=== PATIENT | female | born 1945 | race Caucasian/White ===

== ENCOUNTER → 2017-04-18 07:43 | Outpatient (CLI) | payer MEDICARE, SELFPAY | PROVIDERS: Visit Provider Internal Medicine Adolescent Medicine | DX: G43.109 Migraine with aura, not intractable, without status migrainosus (principal) ==

== ENCOUNTER → 2017-04-25 09:21 | Outpatient (CLI) | payer MEDICARE, SELFPAY ==
--- NOTE | 2017-04-25 09:25 | MR_ITS ---
MR head/brain wo con HISTORY: Headache, visual disturbance, pain and pressure behind the left eye worsening. ITS.REASON: OCCULAR MIGRAINE ORDERING PHYSICIAN: Jorgito Riggins MD PATIENT AGE: 71 years COMPARISON: None TECHNIQUE: Standard multiplanar multiecho sequences are performed without contrast. FINDINGS: No midline shift, mass effect, intracranial hemorrhage, or hydrocephalus is evident. The cerebellopontine angles, cerebellum, and brainstem are unremarkable. There is no evidence of acute infarction. There scattered periventricular and subcortical T2 white matter hyperintensities consistent with ischemic gliotic change from microvascular disease. The carotid arteries are somewhat prominent. No large aneurysm is evident. Smaller aneurysms may not be detected with this technique and may be better evaluated with MRA if clinically warranted. There is opacification of the sphenoid sinus on the right. Hippocampal structures are unremarkable in the temporal horns are some x-ray. No mastoid effusion. The globes are grossly unremarkable. IMPRESSION: 1. No acute intracranial findings. 2. Prominence of the carotid arteries nonspecific. No large aneurysm apparent. Smaller aneurysms may not be seen with this technique and may be better evaluated with MRA clinically warranted. 3. Right sphenoid sinus IMPRESSION:
== END ==
PROVIDERS: Visit Provider Internal Medicine Adolescent Medicine
DX: G43.109 Migraine with aura, not intractable, without status migrainosus (principal)
CPT/HCPCS: 70551

== ENCOUNTER → 2017-10-26 16:00 | Outpatient (CLI) | payer MEDICARE, SELFPAY ==
--- NOTE | 2017-10-26 16:03 | MM_ITS ---
MM Dig screening mamm BI w/CAD CAD Screening COMPARISON: Digital mammograms with CAD 10/22/2015 and 06/19/2013 INDICATION: There is a history of breast cancer patient's mother diagnosed after menopause TECHNIQUE: Standard CC and MLO images were obtained. R2 CAD reviewed. FINDINGS: Moderate fibroglandular densities are seen in the central portions of both breasts. There are mole markers on each breast. There are couple benign-appearing calcifications in each breast. There is no suspicious lesion and there are no suspicious microcalcifications. IMPRESSION: Fibrofatty parenchyma with no suspicious lesion seen BI-RADS Category: 2 Benign Finding(s) RECOMMENDED FOLLOW-UP: 1YR - 1 YEAR FOLLOW-UP (A letter has been sent to the patient regarding results of the study.)
== END ==
PROVIDERS: PCP Internal Medicine Adolescent Medicine; Visit Provider Nurse Practitioner Family
DX: Z12.31 Encounter for screening mammogram for malignant neoplasm of breast (principal)
CPT/HCPCS: 77067

== ENCOUNTER → 2017-10-28 10:08 | Outpatient (CLI) | payer MEDICARE, SELFPAY ==
[2017-10-28 10:37] LABS: Basophils # 0.1 K/mm3 (0-0.2); Basophils % 0.6 % (0.1-2.0); Eosinophils # 0.2 K/mm3 (0.0-0.4); Eosinophils % 2.6 % (0.1-12.0); Hematocrit 42.2 % (37.0-47.0); Hemoglobin 14.2 g/dL (12.2-16.2); Lymphocytes % 32.8 K/mm3 (10-50); Mean Corpuscular HGB Conc 33.6 g/dL (31.8-35.4); Mean Corpuscular Hemoglobin 28.9 pg (27.0-31.2); Mean Corpuscular Volume 85.8 fl (81-99); Mean Platelet Volume 6.9 fl (7.4-10.4); Monocytes # 0.6 K/mm3 (0.1-1.0); Monocytes % 6.9 % (1.7-9.3); Neutrophils # 5.2 K/mm3 (1.8-7.8); Neutrophils % 56.9 % (37.0-80.0); Platelet Count 280 K/mm3 (142-424); Red Blood Count 4.91 M/mm3 (4.20-5.40); White Blood Count 9.1 K/mm3 (4.8-10.8)
[2017-10-28 11:00] LABS: Alanine Aminotransferase 17 U/L (12-78); Albumin Level 3.6 gm/dL (3.4-5.0); Albumin/Globulin Ratio 0.9 (1.1-1.8); Alkaline Phosphatase 113 U/L (46-116); Anion Gap 11.6 mEq/L (5-15); Aspartate Amino Transferase 11 U/L (15-37); Bilirubin,Total 0.4 mg/dL (0.2-1.0); Blood Urea Nitrogen 10 mg/dL (7-18); Calcium 8.9 mg/dL (8.5-10.1); Carbon Dioxide 31 mmol/L (21.0-32.0); Chloride 105 mmol/L (98-107); Chol/HDL Ratio 4.8 (1-3.5); Cholesterol 224 mg/dL (140-200); Creatinine,Serum 0.84 mg/dL (0.55-1.02); Estimated Glomerular Filt Rate 66 ml/min (>60); GFR (African American) 80 ML/MIN (>60); Globulin 3.8 gm/dl (1.3-3.2); Glucose 98 mg/dL (74-106); HDL Cholesterol 47 mg/dL (29-89); LDL Cholesterol 151 mg/dL (0-130); Potassium 3.6 mmoL/L (3.5-5.1); Sodium 144 mmol/L (136-145); Total Protein,Serum 7.4 gm/dL (6.4-8.2); Triglycerides 129 mg/dL (30-200); VLDL Cholesterol 26 mg/dL (0-40)
[2017-10-29 18:30] LABS: Vitamin B12 937 pg/mL (232-1245); Vitamin D 25 Hydroxy 41.6 ng/mL (30.0-100.0)
== END ==
PROVIDERS: PCP Internal Medicine Adolescent Medicine; Visit Provider Internal Medicine Adolescent Medicine
DX: I10 Essential (primary) hypertension (principal); E78.5 Hyperlipidemia, unspecified; E53.8 Deficiency of other specified B group vitamins; E55.9 Vitamin D deficiency, unspecified
CPT/HCPCS: 36415; 80053; 80061; 82607; 82652; 85025

== ENCOUNTER → 2018-10-09 15:38 | Outpatient (CLI) | payer MEDICARE, SELFPAY ==
[2018-10-09 16:25] LABS: Basophils % 0.3 % (0.1-2.0); Eosinophils # 0.1 K/mm3 (0.0-0.4); Eosinophils % 0.9 % (0.1-12.0); Hematocrit 42.6 % (37.0-47.0); Hemoglobin 13.9 g/dL (12.2-16.2); Lymphocytes % 7.1 % (10-50); Mean Corpuscular HGB Conc 32.5 g/dL (31.8-35.4); Mean Corpuscular Hemoglobin 28.5 pg (27.0-31.2); Mean Corpuscular Volume 87.8 fl (81-99); Mean Platelet Volume 7.1 fl (7.4-10.4); Monocytes # 0.7 K/mm3 (0.1-1.0); Monocytes % 5.3 % (1.7-9.3); Neutrophils # 11.9 K/mm3 (1.8-7.8); Neutrophils % 86.3 % (37.0-80.0); Platelet Count 339 K/mm3 (142-424); Red Blood Count 4.86 M/mm3 (4.20-5.40); Red Cell Distribution Width 13.3 % (11.5-17.5); White Blood Count 13.8 K/mm3 (4.8-10.8)
[2018-10-09 16:45] LABS: MANUAL DIFFERENTIAL MANUAL DIFFERENTIAL (MANUAL DIFF)
[2018-10-09 18:04] LABS: Lymphocytes % 7 % (10-50); Monocytes % 8 % (2-9); Neutrophils % 80 % (42-76); Platelet Estimate Normal; RBC Morphology Normal; Total Cells Counted 100
[2018-10-09 19:06] LABS: Alanine Aminotransferase 30 U/L (12-78); Albumin Level 3.6 gm/dL (3.4-5.0); Alkaline Phosphatase 78 U/L (46-116); Anion Gap 14.3 mEq/L (5-15); Aspartate Amino Transferase 21 U/L (15-37); Bilirubin,Total 0.5 mg/dL (0.2-1.0); Blood Urea Nitrogen 23 mg/dL (7-18); Carbon Dioxide 28 mmol/L (21.0-32.0); Chloride 99 mmol/L (98-107); Creatinine,Serum 1.22 mg/dL (0.55-1.02); Estimated Glomerular Filt Rate 43 ml/min (>60); GFR (African American) 52 ML/MIN (>60); Globulin 3.7 gm/dl (1.3-3.2); Glucose 91 mg/dL (74-106); Potassium 3.3 mmoL/L (3.5-5.1); Sodium 138 mmol/L (136-145); Total Protein,Serum 7.3 gm/dL (6.4-8.2)
== END ==
PROVIDERS: Visit Provider Nurse Practitioner Family
DX: N39.0 Urinary tract infection, site not specified (principal); R30.0 Dysuria
CPT/HCPCS: 36415; 80053; 85007; 85025; 87040; 87086

== ENCOUNTER → 2019-01-29 08:47 | Outpatient (CLI) | payer MEDICARE, SELFPAY ==
--- NOTE | 2019-01-29 08:52 | FL_ITS ---
PROCEDURE: FL BARIUM SWALLOW CLINICAL INDICATION: dysphagia COMPARISON: No exams were available for comparison TECHNIQUE: In the upright position the patient was observed to swallow barium in both the AP and lateral view. The cervical esophagus was examined under fluoroscopy with images obtained. The patient was then placed prone in the right anterior oblique position and was observed to swallow barium with Valsalva technique . FLUOROSCOPY TIME: 49 seconds FINDINGS: There was temporary spasm of the cricopharyngeus muscle. No annular constricting lesions or filling defects are evident. There was a small sliding hernia with a mildly constricting Schatzki's ring. IMPRESSION: Small hiatal hernia with a mildly constricting Schatzki's ring Dictated by: Connor Giles MD 01/29/2019 10:05 Electronically signed by Connor Giles MD in [place] 01/29/2019 10:05
== END ==
PROVIDERS: PCP Internal Medicine Adolescent Medicine; Visit Provider Surgery
DX: R13.10 Dysphagia, unspecified (principal)
CPT/HCPCS: 74220

== ENCOUNTER → 2019-05-17 12:49 | Outpatient (CLI) | payer MEDICARE, SELFPAY ==
--- NOTE | 2019-05-17 13:01 | MM_ITS ---
PROCEDURE: MM DIG SCREENING MAMM BI W/CAD Digital Breast Tomosynthesis Included CLINICAL INDICATION: SCREENING COMPARISON: [facility] DIG MAMM-SCREEN JOAN from 06/19/2013 [facility] DIG MAMM-SCREEN JOAN from 10/22/2015 [facility] MM Dig screening mamm BI w/CAD from 10/26/2017 TECHNIQUE: Standard CC and MLO images and 3D Tomosynthesis was obtained. R2 CAD reviewed. FINDINGS: There are 3 new circumscribed nodules projecting over the deep superior right breast as best seen on the MLO view. Largest measures 10.3 millimeters with one superior to it measuring 6.0 millimeters and one further superiorly in the prepectoral region measuring 4.0 millimeters These demonstrate some internal lucency and are felt to be most consistent with nonspecific lymph nodes. A benign appearing circumscribed nodule in the inferior and lateral aspect of the left breast 5.0 millimeters is noted. Density was seen in this region on previous CC views. Benign appearing calcifications are seen bilaterally. There is no spiculated mass or suspicious clustered microcalcification to suggest malignancy. IMPRESSION: BI-RAD Category: 3 Probably Benign Finding Short Term Follow-up FOLLOW-UP: 6M 6Month Follow-up (A letter has been sent to the patient regarding results of the study.) Dictated by: Naveen Boswell 05/21/2019 18:15 Electronically signed by Naveen Boswell in [place] 05/21/2019 18:15
== END ==
PROVIDERS: PCP Internal Medicine Adolescent Medicine; Visit Provider Nurse Practitioner Family
DX: Z12.31 Encounter for screening mammogram for malignant neoplasm of breast (principal)
CPT/HCPCS: 77063; 77067

== ENCOUNTER 2019-06-26 14:48 | Outpatient (RCR) | payer MEDICARE, SELFPAY ==
--- NOTE | 2019-06-26 15:47 | HMH.PTOPEV ---
PT Outpatient Evaluation Rehab PT Outpatient Evaluation Start: 06/26/19 15:35 Freq: Status: Active Protocol: Document 06/26/19 15:35 JUNITO (Rec: 06/26/19 15:46 JUNITO [id number]) Electronically Signed By Bob Fernandes, PT 06/26/19 15:35 Outpatient Therapy Subjective History Subjective History Pt is a 74 year old female presenting to outpatient PT with reports of cervical spine pain starting appoximatley 4 months ago. No radicular symptoms to report. Most recent diagnostics indicate multi-level DDD. Comorbidites include HTN, HLD, hx of polio, L TKA and appendectomy. Chief Complaint Pain,Stiff Symptom Type Ache,Sharp Symptoms Relieved By Heat,OTC Meds,Prescription Meds Symptoms Aggravated By Physical Activity,Lifting Prior Functional Limitations None Current Functional Limitations Reaching,Lifting,Housework, Sleeping Symptom Description Intermittent Level of pain today (0-10) 4 Pain scale - at its best (0-10) 0 Pain scale - at its worst (0-10) 7 Cervical Eval Palpation Cervical Muscles R Cervical Paraspinal,L Cervical Paraspinal,R CT Junction,L CT Junction,R Upper Trapezius,L Upper Trapezius Cervical/Thoracic Palpation Findings Tenderness Posture Head/C-Spine Posture Sitting Position C-Spine Flattened Head/C-Spine Posture Standing Position C-Spine Flattened Flexibility Deficits Upper Trapezius Muscle Length (R) Moderate Tightness,(L) Moderate Tightness Levaetor Scapulae Muscle Length (R) Moderate Tightness,(L) Moderate Tightness Pectoralis Minor Muscle Length (R) Moderate Tightness,(L) Moderate Tightness Passive Joint Mobility Cervical PIVM Dec: R OA L OA R AA L AA R C2/3 L C2/3 R C3/4 L C3/4 R C4/5 L C4/5 R C5/6 L C5/6 R C6/7 L C6/7 R C7/T1
== END 2019-06-26 14:55 | disposition home or self-care (01) ==
LOC: PT 14:48
PROVIDERS: PCP Internal Medicine Adolescent Medicine; Visit Provider Nurse Practitioner Family
DX: M47.812 Spondylosis without myelopathy or radiculopathy, cervical region (principal)
CPT/HCPCS: 97010; 97014; 97163; G0283

== ENCOUNTER → 2019-11-14 14:02 | Outpatient (CLI) | payer MEDICARE, SELFPAY ==
--- NOTE | 2019-11-14 14:06 | MM_ITS ---
PROCEDURE: MM DIG MAMM BI DX W/CAD Digital Breast Tomosynthesis Included CLINICAL INDICATION: ABN MAMM OF BOTH BREASTS COMPARISON: MG [facility] DIG MAMM-SCREEN JOAN from 10/22/2015 MG [facility] MM Dig screening mamm BI w/CAD from 10/26/2017 MG MM DIG SCREENING MAMM BI W/CAD from 05/17/2019 US US BREAST RT COMPLETE from 11/14/2019 TECHNIQUE: Standard images with spot compression views and right breast ultrasound. FINDINGS: Average fibroglandular tissue. On the right there is a 5 mm nodular opacity in the upper outer aspect of the right breast which has developed since the interval. This may represent 2 separate small nodules or a bilobular nodule as seen on the tomogram images. The left breast has an unremarkable appearance.. There multiple small skin lesions noted on the left. Right breast ultrasound: In the 10 o'clock region of the right breast there is a bilobular hypoechoic area measuring 5 mm which may correspond to the mammographic abnormality. This may be due to small lymph node. Continued six-month follow-up is suggested to confirm stability. IMPRESSION: Probably benign findings. New nodular density upper outer right breast which may correspond to a lymph node. Recommend continued six-month mammographic and sonographic follow-up. BI-RAD Category: 3 Probably Benign Finding Short Term Follow-up FOLLOW-UP: 6M 6Month Follow-up (A letter has been sent to the patient regarding results of the study.) Dictated by: Connor Giles MD 11/21/2019 18:01 Connor Giles MD in [place] 11/21/2019 18:01
== END ==
PROVIDERS: PCP Nurse Practitioner Family; Visit Provider Nurse Practitioner Family
DX: R92.8 Other abnormal and inconclusive findings on diagnostic imaging of breast (principal)
CPT/HCPCS: 76641; 77062; 77066; G0279

== ENCOUNTER → 2019-12-03 12:20 | Outpatient (CLI) | payer MEDICARE, SELFPAY ==
[2019-12-03 14:10] LABS: Blood Urea Nitrogen 16 mg/dl (7-17); Estimated Glomerular Filt Rate 70 ml/min (>60); GFR (African American) 85 ML/MIN (>60)
== END ==
PROVIDERS: Visit Provider Nurse Practitioner Family
DX: R59.0 Localized enlarged lymph nodes (principal)
CPT/HCPCS: 36415; 82565; 84520

== ENCOUNTER → 2020-02-26 10:30 | Outpatient (CLI) | payer MEDICARE, SELFPAY ==
[2020-02-26 10:52] LABS: Basophils # 0.1 K/mm3 (0-0.2); Basophils % 1.2 % (0.1-2.0); Eosinophils # 0.3 K/mm3 (0.0-0.4); Eosinophils % 3.9 % (0.1-12.0); Hematocrit 46.1 % (37.0-47.0); Hemoglobin 15.2 g/dL (12.2-16.2); Lymphocytes # 2.6 K/mm3 (0.7-4.5); Lymphocytes % 34.3 % (10-50); Mean Corpuscular HGB Conc 32.9 g/dL (31.8-35.4); Mean Corpuscular Hemoglobin 28.4 pg (27.0-31.2); Mean Corpuscular Volume 86.4 fl (81-99); Mean Platelet Volume 7.3 fl (7.4-10.4); Monocytes # 0.5 K/mm3 (0.1-1.0); Monocytes % 6.9 % (1.7-9.3); Neutrophils # 4.1 K/mm3 (1.8-7.8); Neutrophils % 53.7 % (37.0-80.0); Platelet Count 322 K/mm3 (142-424); Red Blood Count 5.34 M/mm3 (4.20-5.40); Red Cell Distribution Width 13.9 % (11.5-17.5); White Blood Count 7.7 K/mm3 (4.8-10.8)
[2020-02-26 11:33] LABS: Alanine Aminotransferase 16 U/L (12-78); Albumin Level 4.5 g/dl (3.5-5.0); Albumin/Globulin Ratio 1.2 (1.1-1.8); Alkaline Phosphatase 104 U/L (38-126); Anion Gap 13.6 mEq/L (5-15); Aspartate Amino Transferase 28 U/L (14-36); Bilirubin,Total 0.7 mg/dl (0.2-1.3); Blood Urea Nitrogen 15 mg/dl (7-17); Calcium 10.3 mg/dl (8.4-10.2); Carbon Dioxide 32 mmol/L (22.0-30.0); Chloride 99 mmol/L (98-107); Chol/HDL Ratio 5.5 (1-3.5); Cholesterol 235 mg/dl (140-200); Estimated Glomerular Filt Rate 70 ml/min (>60); GFR (African American) 85 ML/MIN (>60); Globulin 3.7 g/dL (1.3-3.2); Glucose 109 mg/dl (74-100); HDL Cholesterol 43 mg/dl (40-60); Potassium 3.6 mmoL/L (3.5-5.1); Sodium 141 mmol/L (136-145); Total Protein,Serum 8.2 g/dl (6.3-8.2); Triglycerides 155 mg/dl (30-150); VLDL Cholesterol 31 mg/dL (0-40)
[2020-02-26 11:44] LABS: Direct LDL Cholesterol 150.49 mg/dL (100-129)
[2020-02-26 11:50] LABS: 25-OH Vitamin D, Total 48.3 ng/mL (30-100)
[2020-02-26 12:23] LABS: Vitamin B12 731 pg/mL (239-931)
--- NOTE | 2020-02-26 15:53 | MR_ITS ---
PROCEDURE: MR HEAD/BRAIN WO/W CON CLINICAL INDICATION: HEADACHE, VERTIGO, DIPLOPLOA, LEFT EYE UNABLE TO FOLLOW COMMANDS COMPARISON: No exams were available for comparison TECHNIQUE: Routine multiplanar multi echo sequences are performed without and with gadolinium enhancement. FINDINGS: No midline shift, mass effect, intracranial hemorrhage, or hydrocephalus is evident. The cerebellopontine angles, cerebellum, brainstem and mid brain have an unremarkable appearance. The no enhancing lesions are evident. There are nonspecific periventricular T2 white matter hyperintensities with a few foci noted within the estefania which may be related to ischemic gliotic change from microvascular disease. No evidence of acute infarction. No enhancing lesions are evident. The intracranial carotid arteries and middle cerebral branches are somewhat prominent. No large aneurysms are evident. MRA may provide further evaluation if clinically desired. There is mucosal thickening of the sphenoid sinus on the right. The pituitary, optic chiasm, corpus callosum, and craniocervical junction have an unremarkable appearance. There are degenerative changes in the cervical spine at C4-C5 with bulging disc and narrowing of the canal. IMPRESSION: 1. No acute intracranial findings. 2. Prominent intracranial carotids and middle cerebral arteries. No obvious aneurysm. MRA may provide further evaluation in this patient with visual disturbance. 3. Sphenoid sinus disease on the right Dictated by: Connor Giles MD 02/28/2020 13:40 Connor Giles MD in [place] 02/28/2020 13:40
--- NOTE | 2020-02-26 15:53 | MR_ITS ---
PROCEDURE: MR ORBITS FACE NECK WO/W CON CLINICAL INDICATION: HEADACHE, VERTIGO, DIPLOPLOA, LEFT EYE UNABLE TO FOLLOW COMMANDS 16ML [employer] LOT:[id number] EXP:FEB 2022 COMPARISON: No exams were available for comparison TECHNIQUE: Routine multiplanar multi echo sequences are performed without and with gadolinium enhancement. FINDINGS: The orbits have an unremarkable appearance. No mass or abnormal enhancement evident. There are symmetric extraocular muscles. The ocular nerves are symmetric. No intra or extra ocular mass evident. Mucosal thickening involves the sphenoid sinus on the right. IMPRESSION: Negative MRI of the orbits Dictated by: Connor Giles MD 02/28/2020 13:49 Connor Giles MD in [place] 02/28/2020 13:49
== END ==
PROVIDERS: PCP Nurse Practitioner Family; Visit Provider Internal Medicine Adolescent Medicine
DX: H53.2 Diplopia (principal); H57.12 Ocular pain, left eye; E78.5 Hyperlipidemia, unspecified; E55.9 Vitamin D deficiency, unspecified; E53.8 Deficiency of other specified B group vitamins
CPT/HCPCS: 36415; 70543; 70553; 80053; 80061; 82306; 82607; 85025; A9576

== ENCOUNTER → 2020-05-14 12:52 | Outpatient (CLI) | payer MEDICARE, SELFPAY ==
--- NOTE | 2020-05-14 12:56 | MM_ITS ---
PROCEDURE: MM DIG MAMM DX UNILAT RT CAD Digital Breast Tomosynthesis Included CLINICAL INDICATION: ABN MAMM COMPARISON: MG [facility] MM Dig screening mamm BI w/CAD from 10/26/2017 MG MM DIG SCREENING MAMM BI W/CAD from 05/17/2019 MG MM DIG MAMM BI DX W/CAD from 11/14/2019 US US BREAST RT COMPLETE from 11/14/2019 US US BREAST RT COMPLETE from 05/14/2020 TECHNIQUE: Standard CC and MLO images and 3D Tomosynthesis was obtained. R2 CAD reviewed. Right breast ultrasound also performed FINDINGS: Average fibroglandular tissue. No change in the bilobed nodule in the upper outer right breast measuring 6 mm. No malignant appearing mass or malignant-appearing microcalcification. Right breast ultrasound: 5 x 4 mm hypoechoic nodule at the 10 o'clock region which may correspond to the mammographic abnormality and may be due to small lymph nodes. No suspicious solid lesions. IMPRESSION: No interval change with no evidence of malignancy BI-RAD Category: 2 Benign Finding(s). Recommend resume screening October 2020 FOLLOW-UP: 6M 6Month Follow-up (A letter has been sent to the patient regarding results of the study.) Dictated by: Connor Giles MD 05/16/2020 13:27 Connor Giles MD in [place] 05/16/2020 13:27
== END ==
PROVIDERS: PCP Internal Medicine Adolescent Medicine; Visit Provider Nurse Practitioner Family
DX: R92.8 Other abnormal and inconclusive findings on diagnostic imaging of breast (principal)
CPT/HCPCS: 76641; 77061; 77065; G0279

== ENCOUNTER → 2021-01-01 14:28 | Outpatient (CLI) | payer MEDICARE, SELFPAY ==
--- NOTE | 2021-01-01 14:31 | MM_ITS ---
PROCEDURE INFORMATION: Exam: MG Bilateral Screening 3D Mammography Exam date and time: 01/01/2021 2:31 PM Age: 75 years old Clinical indication: Screening exam; . Family history of breast carcinoma. TECHNIQUE: Imaging protocol: Bilateral screening tomosynthesis and 2D mammography including computer-aided detection (CAD) when performed. COMPARISON: 1. MG MM DIG MAMM DX UNILAT RT CAD 05/14/2020 1:07 PM 2. MG MM DIG MAMM BI DX W/CAD 11/14/2019 2:17 PM 3. MG MM DIG SCREENING MAMM BI W/CAD 05/17/2019 1:04 PM FINDINGS: MAMMOGRAPHY: Breast composition: There are scattered areas of fibroglandular density. Mass: No suspicious masses. Architectural distortion: No suspicious distortion. Calcifications: No suspicious calcifications. Asymmetric density: None. Skin thickening: None. Axillary adenopathy: None. IMPRESSION: No mammographic evidence of malignancy. Annual screening is recommended unless otherwise clinically indicated. ASSESSMENT: BI-RADS Category 1: Negative
== END ==
PROVIDERS: PCP Nurse Practitioner Family; Visit Provider Nurse Practitioner Family
DX: R92.8 Other abnormal and inconclusive findings on diagnostic imaging of breast (principal); Z12.31 Encounter for screening mammogram for malignant neoplasm of breast
CPT/HCPCS: 77063; 77067

== ENCOUNTER → 2021-01-05 14:35 | Outpatient (CLI) | payer MEDICARE, SELFPAY | PROVIDERS: PCP Internal Medicine Adolescent Medicine; Visit Provider Nurse Practitioner | DX: Z20.822 Contact with and (suspected) exposure to COVID-19 (principal) | CPT/HCPCS: C9803; U0003; U0005 ==

== ENCOUNTER → 2021-01-12 09:11 | Outpatient (CLI) | payer MEDICARE, SELFPAY ==
[2021-01-12 10:40] LABS: Chloride 102 mmol/L (98-107); Potassium 3.8 mmoL/L (3.5-5.1); Sodium 142 mmol/L (136-145)
[2021-01-12 10:42] LABS: Basophils # 0.1 K/mm3 (0-0.2); Basophils % 1.1 % (0.1-2.0); Eosinophils # 0.2 K/mm3 (0.0-0.4); Eosinophils % 2.6 % (0.1-12.0); Hematocrit 40.4 % (37.0-47.0); Hemoglobin 13.4 g/dL (12.2-16.2); Lymphocytes # 2.4 K/mm3 (0.7-4.5); Lymphocytes % 34.1 % (10-50); Mean Corpuscular HGB Conc 33.2 g/dL (31.8-35.4); Mean Corpuscular Hemoglobin 29.1 pg (27.0-31.2); Mean Corpuscular Volume 87.7 fl (81-99); Mean Platelet Volume 8.4 fl (7.4-10.4); Monocytes # 0.6 K/mm3 (0.1-1.0); Neutrophils # 3.7 K/mm3 (1.8-7.8); Neutrophils % 54.2 % (37.0-80.0); Platelet Count 330 K/mm3 (142-424); Red Blood Count 4.61 M/mm3 (4.20-5.40); Red Cell Distribution Width 13.5 % (11.5-17.5); White Blood Count 6.9 K/mm3 (4.8-10.8)
[2021-01-12 10:43] LABS: Alanine Aminotransferase 7 U/L (12-78); Albumin Level 4.2 g/dl (3.5-5.0); Albumin/Globulin Ratio 1.6 (1.1-1.8); Alkaline Phosphatase 92 U/L (38-126); Anion Gap 9.8 mEq/L (5-15); Aspartate Amino Transferase 25 U/L (14-36); Bilirubin,Total 0.4 mg/dl (0.2-1.3); Blood Urea Nitrogen 11 mg/dl (7-17); Carbon Dioxide 34 mmol/L (22.0-30.0); Estimated Glomerular Filt Rate 81 ml/min (>60); GFR (African American) 98 ML/MIN (>60); Globulin 2.7 g/dL (1.3-3.2); Total Protein,Serum 6.9 g/dl (6.3-8.2)
[2021-01-12 10:44] LABS: Calcium 9.6 mg/dl (8.4-10.2); Glucose 95 mg/dl (74-100)
== END ==
PROVIDERS: Visit Provider Nurse Practitioner Family
DX: R19.7 Diarrhea, unspecified (principal)
CPT/HCPCS: 36415; 80053; 85025

== ENCOUNTER → 2021-01-13 10:24 | Outpatient (CLI) | payer MEDICARE, SELFPAY ==
[2021-01-13 10:27] LABS: Adenovirus F 40/41, stool Not Detected (NotDetected); Astrovirus Not Detected (NotDetected); Campylobacter Not Detected (NotDetected); Clostridium Difficile A/B, PCR Not Detected (NotDetected); Cryptosporidium Not Detected (NotDetected); Cyclospora Cayetanesis Not Detected (NotDetected); Entamoeba histolytica Not Detected (NotDetected); Enteroaggregative E coli Not Detected (NotDetected); Enteropathogenic E coli Not Detected (NotDetected); Enterotoxigenic E coli Not Detected (NotDetected); Giardia lamblia Not Detected (NotDetected); Norovirus Not Detected (NotDetected); Plesimonas Shigalloides, PCR Not Detected (NotDetected); Rotavirus A Not Detected (NotDetected); Salmonella, PCR Not Detected (NotDetected); Sapovirus Not Detected (NotDetected); Shiga-like toxin E coli Not Detected (NotDetected); Shigella Enterovasive E coli Not Detected (NotDetected); Vibrio Cholerae Not Detected (NotDetected); Vibrio, PCR Not Detected (NotDetected); Yersinia Entercolitica, PCR Not Detected (NotDetected)
== END ==
PROVIDERS: Visit Provider Nurse Practitioner Family
DX: R19.7 Diarrhea, unspecified (principal)
CPT/HCPCS: 87506

== ENCOUNTER → 2021-06-22 11:59 | Outpatient (CLI) | payer MEDICARE, SELFPAY ==
--- NOTE | 2021-06-22 12:08 | XR_ITS ---
FINAL REPORT CLINICAL HISTORY: RIGHT FOOT PAIN FINDINGS: 3 views of the right foot were obtained. There is no acute fracture or dislocation. There are mild and moderate degenerative changes. The soft tissues are unremarkable. IMPRESSION: Mild and moderate degenerative changes. Reviewed, Interpreted and Dictated by Abebe Sheehan III, MD Transcribed by Lukas Thakur Authenticated by Abebe Sheehan III, MD on 06/22/2021 02:41:39 PM [facility]
--- NOTE | 2021-06-22 12:09 | XR_ITS ---
FINAL REPORT CLINICAL HISTORY: RIGHT ANTERIOR KNEE PAIN FINDINGS: Three views of the right knee reveal no evidence of fracture or dislocation. The bony alignment is normal. There is mild degenerative change. There is no evidence of joint effusion. No localized soft tissue abnormality is identified. IMPRESSION: Mild degenerative change. Reviewed, Interpreted and Dictated by Abebe Sheehan III, MD Transcribed by Lukas Thakur Authenticated by Abebe Sheehan III, MD on 06/22/2021 02:01:10 PM [facility]
--- NOTE | 2021-06-22 12:10 | XR_ITS ---
FINAL REPORT CLINICAL HISTORY: RIGHT FOOT/ANKLE PAIN FINDINGS: RIGHT ANKLE: Three views of the right ankle were obtained. There is no acute fracture or dislocation. There is moderate to severe degenerative change. There are large chronic calcifications in the region of the Achilles tendon. IMPRESSION: Moderate to severe degenerative change. Reviewed, Interpreted and Dictated by Abebe Sheehan III, MD Transcribed by Lukas Thakur Authenticated by Abebe Sheehan III, MD on 06/22/2021 02:01:[address] [facility]
== END ==
PROVIDERS: PCP Nurse Practitioner Family; Visit Provider Nurse Practitioner Family
DX: M25.561 Pain in right knee (principal); M25.571 Pain in right ankle and joints of right foot; M79.671 Pain in right foot; G89.29 Other chronic pain; Z86.12 Personal history of poliomyelitis
CPT/HCPCS: 73562; 73610; 73630

== ENCOUNTER → 2021-08-11 09:29 | Outpatient (CLI) | payer MEDICARE, SELFPAY ==
--- NOTE | 2021-08-11 09:30 | US_ITS ---
FINAL REPORT CLINICAL HISTORY: decreased pulses, cold extremities, polio in right leg. HTN, hyperlipidemia, bilateral rest pain, bilateral claudication. FINDINGS: ANKLE-BRACHIAL PRESSURE INDICES Pressure indices are as follows: RIGHT LOWER EXTREMITY: Ankle-brachial pressure index: 0.85 LEFT LOWER EXTREMITY: Ankle-brachial pressure index: 0.97 CONCLUSION: Findings consistent with mild vascular disease on the right and borderline on the left. Reviewed, Interpreted and Dictated by Abebe Sheehan III, MD Transcribed by Mouna Donaldson Authenticated and [facility]
== END ==
PROVIDERS: PCP Nurse Practitioner Family; Visit Provider Podiatrist
DX: R09.89 Other specified symptoms and signs involving the circulatory and respiratory systems (principal)
CPT/HCPCS: 93923

== ENCOUNTER → 2021-12-18 13:08 | Outpatient (CLI) | payer MEDICARE, SELFPAY ==
--- NOTE | 2021-12-18 13:12 | MM_ITS ---
PROCEDURE INFORMATION: Exam: MG Bilateral Screening 3D Mammography Exam date and time: 12/18/2021 1:17 PM Age: 76 years old Clinical indication: Screening examination TECHNIQUE: Imaging protocol: Bilateral Screening tomosynthesis and 2D mammography including computer-aided detection (CAD) when performed. COMPARISON: 1. MG MM DIG SCREENING MAMM BI W/CAD 01/01/2021 2:33 PM 2. MG MM DIG MAMM DX UNILAT RT CAD 05/14/2020 1:07 PM FINDINGS: MAMMOGRAPHY: Breast composition: There are scattered areas of fibroglandular density. Mass: None. Architectural distortion: None. Calcifications: No suspicious calcifications. Asymmetric density: None. Skin thickening: None. Axillary adenopathy: None. IMPRESSION: No mammographic evidence of malignancy. Annual screening is recommended unless otherwise clinically indicated. ASSESSMENT: BI-RADS Category 1: Negative
== END ==
PROVIDERS: PCP Nurse Practitioner Family; Visit Provider Nurse Practitioner Family
DX: Z12.31 Encounter for screening mammogram for malignant neoplasm of breast (principal)
CPT/HCPCS: 77063; 77067

== ENCOUNTER → 2023-01-26 15:47 | Outpatient (CLI) | payer MEDICARE, SELFPAY ==
--- NOTE | 2023-01-26 15:50 | MM_ITS ---
PROCEDURE INFORMATION: Exam: MG Bilateral Screening 3D Mammography Exam date and time: 01/26/2023 3:46 PM Age: 77 years old Clinical indication: Screening examination TECHNIQUE: Imaging protocol: Bilateral Screening tomosynthesis and 2D mammography including computer-aided detection (CAD) when performed. COMPARISON: 1. MG MM DIG SCREENING MAMM BI W/CAD 12/18/2021 1:17 PM 2. MG MM DIG SCREENING MAMM BI W/CAD 01/01/2021 2:33 PM FINDINGS: MAMMOGRAPHY: Breast composition: There are scattered areas of fibroglandular density. Mass: Questionable 0.6 cm mass in the anterior right 12 o'clock axis. Questionable 0.5 cm mass in the middle third of the right upper outer quadrant Architectural distortion: None. Calcifications: No suspicious calcifications. Asymmetric density: None. Skin thickening: None. Axillary adenopathy: None. IMPRESSION: Patient to be recalled for spot compression views of the right breast in the CC and MLO projections, a full 90 degree lateral view, and right breast ultrasound for further evaluation of 2 right breast masses. ASSESSMENT: BI-RADS Category 0: Incomplete- Need Additional Imaging Evaluation and/or Prior Mammograms for Comparison
== END ==
PROVIDERS: PCP Nurse Practitioner Family; Visit Provider Nurse Practitioner Family
DX: Z12.31 Encounter for screening mammogram for malignant neoplasm of breast (principal)
CPT/HCPCS: 77063; 77067

== ENCOUNTER → 2023-02-07 13:48 | Outpatient (CLI) | payer MEDICARE, SELFPAY ==
--- NOTE | 2023-02-07 13:54 | MM_ITS ---
PROCEDURE INFORMATION: Exam: US Right Breast, Complete MG Right Diagnostic Breast Tomosynthesis Exam date and time: 02/07/2023 2:17 PM Age: 77 years old Clinical indication: Patient recalled on the basis of a screening mammogram for further evaluation; Right breast; masses TECHNIQUE: Imaging protocol: Complete ultrasound of all four quadrants of the right breast and the retroareolar regions, including ultrasound of the axilla when performed. Right Diagnostic tomosynthesis and 2D mammography including computer-aided detection (CAD) when performed. Unilateral or bilateral exam. COMPARISON: US BREAST RT COMPLETE 05/14/2020 1:56 PM FINDINGS: MAMMOGRAPHY: Digital diagnostic spot compression views of the right breast and 90 degree lateral view of the right breast demonstrate normal overlapping fibroglandular structures without persistent mass or asymmetry identified. ULTRASOUND: Sonographic images of the right breast including the retroareolar region, all 4 quadrants and the axilla do not demonstrate any solid masses. Minimal subcentimeter cystic changes noted in the 10 o'clock axis 6 cm from the nipple and in the 1 o'clock axis 2 cm from the nipple. Cursors were placed over benign increased echogenicity within the subcutaneous fat. No architectural distortion or acoustical shadowing. No skin thickening or axillary adenopathy. IMPRESSION: No mammographic or sonographic evidence of malignancy. Annual bilateral mammographic screening is recommended unless otherwise clinically indicated. ASSESSMENT: BI-RADS Category 2: Benign
== END ==
LOC: RAD 13:48
PROVIDERS: PCP Nurse Practitioner Family; Visit Provider Nurse Practitioner Family
DX: R92.8 Other abnormal and inconclusive findings on diagnostic imaging of breast (principal)
CPT/HCPCS: 76641; 77061; 77065; G0279

== ENCOUNTER 2023-12-26 14:48 | Outpatient (CLI) | payer MEDICARE, SELFPAY ==
--- NOTE | 2023-12-26 14:53 | XR_ITS ---
PROCEDURE INFORMATION: Exam: XR Right Knee Exam date and time: 12/26/2023 2:59 PM Age: 78 years old Clinical indication: Pain; Knee; Right; Additional info: Pain 2-3 months TECHNIQUE: Imaging protocol: Radiologic exam of the right knee. Views: 3 views. COMPARISON: CR XR KNEE RT 3V 06/22/2021 12:36 PM FINDINGS: Bones/joints: No fracture, subluxation or significant effusion. No significant degenerative change evident on non weight-bearing views. Soft tissues: Normal. IMPRESSION: 1. No fracture, subluxation or significant effusion. 2. No significant degenerative change evident on non weight-bearing views.
== END 2023-12-26 23:59 | disposition home or self-care (01) ==
LOC: RAD 14:49
PROVIDERS: PCP Nurse Practitioner Family; Visit Provider Nurse Practitioner Family
DX: M25.561 Pain in right knee (principal)
CPT/HCPCS: 73562

== ENCOUNTER 2024-02-24 16:45 | Outpatient (CLI) | payer MEDICARE, SELFPAY ==
--- NOTE | 2024-02-24 16:49 | MM_ITS ---
PROCEDURE INFORMATION: Exam: MG Bilateral Screening 3D Mammography Exam date and time: 02/24/2024 4:40 PM Age: 78 years old Clinical indication: Screening examination. Her mother had breast cancer in her 80s. TECHNIQUE: Imaging protocol: Bilateral Screening tomosynthesis and 2D mammography including computer-aided detection (CAD) when performed. COMPARISON: 1. MG MM DIG MAMM DX UNILAT RT CAD 02/07/2023 1:45 PM 2. MG MM DIG SCREENING MAMM BI W/CAD 01/26/2023 3:46 PM 3. MG MM DIG SCREENING MAMM BI W/CAD 12/18/2021 1:17 PM 4. MG MM DIG SCREENING MAMM BI W/CAD 01/01/2021 2:33 PM FINDINGS: MAMMOGRAPHY: Breast composition: There are scattered areas of fibroglandular density. Mass: See below. Architectural distortion: None. Calcifications: Questionable calcifications related to 0.6 cm mass in the anterior right breast at 12 o'clock - this mass is otherwise similar compared to 01/26/2023. Asymmetric density: None. Skin thickening: None. Axillary adenopathy: None. IMPRESSION: Patient will be recalled for right diagnostic mammography with magnification views in CC and true lateral and right sonography for further evaluation of mass with calcifications. ASSESSMENT: BI-RADS Category 0: Incomplete: Need Additional Imaging Evaluation.
== END 2024-02-24 23:59 | disposition home or self-care (01) ==
LOC: RAD 16:45
PROVIDERS: PCP Nurse Practitioner Family; Visit Provider Internal Medicine Adolescent Medicine
DX: Z12.31 Encounter for screening mammogram for malignant neoplasm of breast (principal)
CPT/HCPCS: 77063; 77067

== ENCOUNTER 2024-03-08 13:55 | Outpatient (CLI) | payer MEDICARE, SELFPAY ==
--- NOTE | 2024-03-08 14:00 | MM_ITS ---
PROCEDURE INFORMATION: Exam: US Right Breast, Complete MG Right Diagnostic Breast Tomosynthesis Exam date and time: 03/08/2024 2:06 PM Age: 78 years old Clinical indication: Callback from screening for right breast calcifications/mass. TECHNIQUE: Imaging protocol: Complete ultrasound of all four quadrants of the right breast and the retroareolar regions, including ultrasound of the axilla when performed. Right Diagnostic tomosynthesis and 2D mammography including computer-aided detection (CAD) when performed. Unilateral or bilateral exam. COMPARISON: 1. MG MM DIG SCREENING MAMM BI W/CAD 02/24/2024 4:40 PM 2. MG MM DIG MAMM DX UNILAT RT CAD 02/07/2023 1:45 PM 3. US BREAST RT COMPLETE 02/07/2023 2:17 PM FINDINGS: MAMMOGRAPHY: Breast composition: There are scattered areas of fibroglandular density. Breast mammogram findings: Right breast magnification and 90 degree lateral tomosynthesis views were obtained. There are benign punctate calcifications scattered throughout the breast. There is persistent 0.9 cm focal asymmetry upper-outer right breast middle depth.Elsewhere, there are no suspicious masses or calcifications in the partially visualized breast. No abnormal lymph nodes in the partially visualized axilla. ULTRASOUND: Breast ultrasound findings: Right breast ultrasound: Incidentally noted parallel circumscribed hypoechoic oval mass at 1 o'clock 2 cm from the nipple measuring 0.5 x 0.2 x 0.4 cm. Incidentally noted echogenic focus measuring 0.7 x 0.4 x 0.9 cm at 3 o'clock, 3 cm from nipple, possibly a lipoma. Benign cluster of cysts at 10 o'clock 6 cm from the nipple measuring 0.9 cm corresponding to the mammographic finding in question. No abnormal lymph nodes in the axilla. IMPRESSION: 1. The mass noted on mammogram corresponds to a benign clustered microcysts. 2. Incidentally noted subcentimeter masses in the right breast at 1 o'clock and 3 o'clock are probably benign. Recommend six-month follow-up right breast ultrasound to ensure stability. ASSESSMENT: BI-RADS Category 3: Probably benign.
== END 2024-03-08 23:59 | disposition home or self-care (01) ==
LOC: RAD 13:56
PROVIDERS: PCP Nurse Practitioner Family; Visit Provider Internal Medicine Adolescent Medicine
DX: R92.8 Other abnormal and inconclusive findings on diagnostic imaging of breast (principal)
CPT/HCPCS: 76641; 77061; 77065; G0279

== ENCOUNTER 2024-08-27 12:48 | Outpatient (CLI) | payer MEDICARE, SELFPAY ==
--- NOTE | 2024-08-27 12:51 | US_ITS ---
PROCEDURE INFORMATION: Exam: US Right Breast, Complete Exam date and time: 08/27/2024 1:12 PM Age: 79 years old Clinical indication: Short-term radiographic follow-up of right breast masses TECHNIQUE: Imaging protocol: Complete ultrasound of all four quadrants of the right breast and the retroareolar regions, including ultrasound of the axilla when performed. COMPARISON: US BREAST RT COMPLETE 03/08/2024 2:06 PM FINDINGS: ULTRASOUND: Breast ultrasound findings: Sonographic images of the right breast including the retroareolar region, all 4 quadrants and the axilla do not demonstrate any suspicious solid or cystic masses. Previously noted right 1 o'clock axis mass is no longer visualized. Right 3 and 10 o'clock axis subcutaneous echogenic subcentimeter masses are consistent with benign lipomas. No architectural distortion or acoustical shadowing. No skin thickening or axillary adenopathy. IMPRESSION: No sonographic evidence of malignancy. Annual mammographic screening is recommended in February 2025 unless otherwise clinically indicated. ASSESSMENT: BI-RADS Category 2: Benign.
== END 2024-08-27 23:59 | disposition home or self-care (01) ==
LOC: RAD 12:49
PROVIDERS: PCP Nurse Practitioner Family; Visit Provider Nurse Practitioner Family
DX: N63.15 Unspecified lump in the right breast, overlapping quadrants (principal); N63.11 Unspecified lump in the right breast, upper outer quadrant
CPT/HCPCS: 76641

== ENCOUNTER 2025-02-16 11:46 | Outpatient (CLI) | payer MEDICARE, SELFPAY ==
[2025-02-16 12:09] LABS: Hematocrit 39.2 % (37.0-47.0); Hemoglobin 13.2 g/dL (12.2-16.2); Immature Granulocytes % 0.2 %; Mean Corpuscular HGB Conc 33.7 g/dL (31.8-35.4); Mean Corpuscular Hemoglobin 28.7 pg (27.0-31.2); Mean Corpuscular Volume 85.2 fl (81-99); Nucleated Red Blood Cells % 0 %; Platelet Count 266 K/mm3 (142-424); Red Blood Count 4.60 M/mm3 (4.20-5.40); Red Cell Distribution Width-SD 39.1 fL; White Blood Count 9.0 K/mm3 (4.8-10.8)
--- NOTE | 2025-02-16 12:17 | XR_ITS ---
PROCEDURE INFORMATION: Exam: XR Left Foot Complete; Alignment Exam date and time: 02/16/2025 12:20 PM Age: 79 years old Clinical indication: Pain; Foot; Left; Additional info: Left foot pain TECHNIQUE: Imaging protocol: Radiologic exam of the left foot. Views: 3 or more views. COMPARISON: US ARTERIAL LOWER EXT REST 08/11/2021 9:33 AM FINDINGS: Bones/joints: Normal. No acute fracture. Joint spaces are preserved. No dislocation or subluxation. Soft tissues: Mild soft tissue swelling is seen around the forefoot. IMPRESSION: No acute findings. Mild soft tissue swelling around the forefoot.
[2025-02-16 12:36] LABS: Chloride 103 mmol/L (98-107); Sodium 142 mmol/L (136-145)
[2025-02-16 12:37] LABS: Potassium 3.1 mmoL/L (3.5-5.1)
[2025-02-16 12:40] LABS: Anion Gap 12.1 mEq/L (5-15); Blood Urea Nitrogen 19 mg/dl (7-17); Calcium 10.1 mg/dl (8.4-10.2); Carbon Dioxide 30 mmol/L (22.0-30.0); Creatinine,Serum 0.90 mg/dl (0.52-1.04); Estimated Glomerular Filt Rate 60 ml/min (>60); GFR (African American) 73 ML/MIN (>60); Glucose 97 mg/dl (74-100)
[2025-02-16 12:46] LABS: C-Reactive Protein 31.6 mg/L (0-4)
[2025-02-16 13:08] LABS: Uric Acid 8.3 mg/dl (2.5-6.2)
== END 2025-02-16 23:59 | disposition home or self-care (01) ==
PROVIDERS: PCP Nurse Practitioner Family; Visit Provider Nurse Practitioner Family
DX: M79.672 Pain in left foot (principal); M79.662 Pain in left lower leg; M79.89 Other specified soft tissue disorders
CPT/HCPCS: 36415; 73630; 80048; 84550; 85025; 85651; 86140